=== PATIENT | female | born 1960 | race Hispanic/Latino ===

== ENCOUNTER 2017-03-13 21:50 | Emergency (ER) | payer MEDICAID, OTHER ==
[2017-03-13 22:03] VITALS: BP 125/96
[2017-03-13 22:18] LABS: Basophils % (Auto) 0.5 % (0.0-1.8); Eosinophils % (Auto) 2.1 % (0.0-4.3); Hematocrit 42.1 % (30.3-42.9); Hemoglobin 14.2 gm/dl (10.1-14.3); Mean Corpuscular HGB Conc 34 % (30-34); Mean Corpuscular Hemoglobin 32 pg (28-32); Mean Corpuscular Volume 94 fl (79-97); Platelet Count 279 K/mm3 (140-440); Red Cell Distribution Width 13.4 % (13.2-15.2); White Blood Count 16.6 K/mm3 (4.5-11.0)
[2017-03-13 22:41] LABS: Alanine Aminotransferase 16 units/L (7-56); Albumin 3.8 g/dL (3.9-5); Albumin/Globulin Ratio 1.2 %; Alkaline Phosphatase 92 units/L (35-129); Anion Gap 20 mmol/L; BUN/Creatinine Ratio 25; Blood Urea Nitrogen 15 mg/dL (7-17); Carbon Dioxide 23 mmol/L (22-30); Chloride 101.4 mmol/L (98-107); Glucose 145 mg/dL (65-100); Lipase 100 units/L (13-60); Potassium 4.1 mmol/L (3.6-5.0); Sodium 140 mmol/L (137-145); Total Protein 7.1 g/dL (6.3-8.2)
[2017-03-13 22:54] LABS: Bilirubin,Urine NEG (Negative); Blood,Urine NEG (Negative); Ketones,Urine NEG (Negative); Leukocyte Esterase,Urine TR (Negative); Mucus,Urine FEW /HPF; Nitrite,Urine NEG (Negative); Protein,Urine <15 mg/dL mg/dL (Negative)
== END 2017-03-13 23:55 | disposition left against medical advice (07) ==
LOC: ED 21:50
DX: R10.9 Unspecified abdominal pain (principal); Z53.21 Procedure and treatment not carried out due to patient leaving prior to being seen by health care provider
CPT/HCPCS: 36415; 80053; 81001; 83690; 85025

== ENCOUNTER 2017-03-14 08:31 | Inpatient (IN) | payer MEDICAID, OTHER ==
--- NOTE | 2017-03-14 09:34 | Emergency Department Report ---
Chief Complaint: Skin/Abscess/Foreign Body Stated Complaint: BOIL ON BUTTOCKS Time Seen by Provider: 03/14/17 09:32 - HPI History of Present Illness: Patient here for that she has abscess on her buttocks area with poor. She has a history of diabetes that her blood sugars at 232 in triage. Patient is drinking in coffee and her heart rate is at 117. Patient says she's been out of her medication especially her diabetic medication for 3 months. She says she does not have a primary care physician. She was here last night and she states she could not wait to be seen. She says she went home and slept. And now she is back. She says she is having pain to her right buttocks 10 out of 10. She is also complaining of pain to the right side of her abdomen that feels crampy and feels gassy. Last bowel movement was 3 days ago. Denies any urinary burning frequency or urgency. She reports some nausea but no vomiting. She denies any chest pain or shortness of breath. - ROS Review of Systems: All systems are negative unless stated in HPI above - Exam Vital Signs: Vital Signs 03/14/17 08:42 Temperature 97.7 F Pulse Rate 117 H Respiratory 20 Rate Blood Pressure 117/75 O2 Sat by Pulse 97 Oximetry Physical Exam: Gen.: This is a 56-year-old female that appears to be in discomfort which she states related to pain to her buttocks. She is nontoxic in appearance Abdomen: Tender to palpate the right abdomen area. Abdomen is soft. Bowel sounds are normal. Skin: Patient with erythema indurated area to right distal buttocks in her lateral. Tender to palpate. She has dressing to the area. CV: Patient is tachycardic 117. She is having pain 10 out of 10 MSE screening note: Focused history and physical exam performed. Due to findings the following was ordered: ED Medical Decision Making - Medical Decision Making MDM: Patient screened by provider in triage area. Appropriate protocol initiated and patient to be seen in main ED by ED Disposition for MSE Condition: Stable Referrals: PRIMARY CARE, [Primary Care Provider] - 3-5 Days
[2017-03-14 10:16] LABS: Basophils % (Auto) 0.7 % (0.0-1.8); Eosinophils % (Auto) 1.2 % (0.0-4.3); Hematocrit 43.4 % (30.3-42.9); Hemoglobin 14.3 gm/dl (10.1-14.3); Mean Corpuscular HGB Conc 33 % (30-34); Mean Corpuscular Hemoglobin 31 pg (28-32); Mean Corpuscular Volume 95 fl (79-97); Platelet Count 287 K/mm3 (140-440); Red Blood Count 4.58 M/mm3 (3.65-5.03); Red Cell Distribution Width 13.2 % (13.2-15.2); White Blood Count 16.8 K/mm3 (4.5-11.0)
[2017-03-14 10:24] LABS: Alanine Aminotransferase 16 units/L (7-56); Albumin 3.6 g/dL (3.9-5); Alkaline Phosphatase 96 units/L (35-129); Anion Gap 19 mmol/L; BUN/Creatinine Ratio 22; Blood Urea Nitrogen 13 mg/dL (7-17); Calcium 9.4 mg/dL (8.4-10.2); Carbon Dioxide 26 mmol/L (22-30); Chloride 98.6 mmol/L (98-107); Glucose 215 mg/dL (65-100); Potassium 4.3 mmol/L (3.6-5.0); Sodium 139 mmol/L (137-145); Total Protein 7.2 g/dL (6.3-8.2)
[2017-03-14 10:28] LABS: Bilirubin,Direct < 0.2 mg/dL (0-0.2)
[2017-03-14] MEDS ORDERED: CLEOCIN 600 MG/50 mL 600 MG/50 ML BAG IV ONE (12:16)
[2017-03-14] MEDS ORDERED: NACL 0.9% 1000 ML 2,000 ML IV ONE (12:16)
--- NOTE | 2017-03-14 12:17 | Emergency Department Report ---
ED General Adult HPI - General Chief complaint: Skin/Abscess/Foreign Body Stated complaint: BOIL ON BUTTOCKS Time Seen by Provider: 03/14/17 09:32 Source: patient, RN notes reviewed, old records reviewed Mode of arrival: Ambulatory Limitations: No Limitations - History of Present Illness Initial comments: This is a 56-year-old female who was previously unknown to this provider. She is a past medical history of COPD, hypertension, tobacco consumption, no primary care doctor, surgical history of total abdominal hysterectomy. The patient presents to the ER with multiple complaints. Her first complaint is abdominal pain. It is in the left lower quadrant and left upper quadrant. It has been present for a week. It is sharp in nature. It increases with palpation. It decreases with rest. No fever. Positive nausea, positive vomiting. No urinary symptoms, no constipation. The patient next complaints is right sided perirectal pain. It is sharp. It does not radiate anywhere. It increases with palpation and defecation. It decreases with rest. The patient's next complaint is headache. The headache is bitemporal and throbbing. It has been present for 3 days. It does not radiate anywhere. It is not sudden or thunderclap in nature. It did not reach maximal intensity within an hour. It is not the worst headache of her life. She reports a worse headache a few years ago. -: Gradual, days(s), week(s) Location: head, abdomen, pelvis Radiation: non-radiation Quality: aching Consistency: intermittent Improves with: rest Worsens with: movement Associated Symptoms: cough (chronic), headaches, loss of appetite, malaise, nausea/vomiting, shortness of breath (chronic). denies: confusion, chest pain - Related Data Home Medications Medication Instructions Recorded Confirmed Last Taken No Known Home Medications [No 03/14/17 03/14/17 Unknown Reported Home Medications] Allergies Allergy/AdvReac Type Severity Reaction Status Date / Time Penicillins Allergy Unknown Unknown Verified 03/13/17 21:59 ED Review of Systems ROS: Stated complaint: BOIL ON BUTTOCKS Other details as noted in HPI Constitutional: malaise, weakness Eyes: denies: vision change ENT: denies: epistaxis Respiratory: cough Cardiovascular: denies: chest pain Gastrointestinal: abdominal pain Genitourinary: denies: dysuria Musculoskeletal: arthralgia Skin: lesions Neurological: weakness ED Past Medical Hx - Past Medical History Previous Medical History?: Yes Hx Hypertension: Yes Hx Diabetes: Yes Hx Psychiatric Treatment: Yes Hx COPD: Yes Additional medical history: anxiety, fibromyalgia - Surgical History Past Surgical History?: Yes Additional Surgical History: hyst - Social History Smoking Status: Current Every Day Smoker Substance Use Type: Prescribed - Medications Home Medications: Home Medications Medication Instructions Recorded Confirmed Last Taken Type No Known Home Medications [No 03/14/17 03/14/17 Unknown History Reported Home Medications] ED Physical Exam - General Limitations: No Limitations General appearance: alert, in distress, obese - Head Head exam: Present: atraumatic, normocephalic - Eye Eye exam: Present: normal appearance, EOMI - ENT ENT exam: Present: normal exam, normal orophraynx, mucous membranes moist, normal external ear exam - Neck Neck exam: Present: normal inspection, full ROM - Respiratory Respiratory exam: Present: rhonchi. Absent: respiratory distress - Cardiovascular Cardiovascular Exam: Present: normal rhythm, tachycardia, normal heart sounds. Absent: systolic murmur, diastolic murmur, rubs, gallop - GI/Abdominal GI/Abdominal exam: Present: soft, tenderness, normal bowel sounds, other (left lower quadrant, left upper quadrant tender). Absent: distended, guarding, rebound, rigid, pulsatile mass - Rectal Rectal exam: Present: other (on the right inferior medial gluteal quadrant, there is a large abscess, 4 x 5 cm, fluctuant, indurated with erythema.). Absent: normal inspection (escorted by nurse Maria Luz Cooper) - Extremities Exam Extremities exam: Present: normal inspection, full ROM, normal capillary refill. Absent: pedal edema, joint swelling, calf tenderness - Back Exam Back exam: Present: normal inspection, full ROM. Absent: paraspinal tenderness , vertebral tenderness - Neurological Exam Neurological exam: Present: alert, oriented X3, other (Extraocular movements intact. Tongue midline. No facial droop. Facial sensation intact to light touch in the V1, V2, V3 distribution bilaterally. 5 and 5 strength in 4 extremities.. Sensation is intact to light touch in 4 extremities.) - Psychiatric Psychiatric exam: Present: anxious - Skin Skin exam: Present: warm, dry, intact, normal color. Absent: rash ED Course Vital Signs 03/14/17 03/14/17 03/14/17 08:42 10:56 11:00 Temperature 97.7 F 100.1 F H Pulse Rate 117 H 107 H Respiratory 20 22 Rate Blood Pressure 117/75 Blood Pressure 100/64 [Right] O2 Sat by Pulse 97 97 Oximetry 03/14/17 03/14/17 15:28 17:40 Temperature 98.7 F Pulse Rate 92 H Respiratory 15 Rate Blood Pressure Blood Pressure 103/67 [Right] O2 Sat by Pulse 95 Oximetry - Reevaluation(s) Reevaluation #1: 03/14/17 13:01 Differential diagnosis, including would not limited to: Colitis, diverticulitis , perforated viscus, gluteal abscess, perirectal abscess, perianal abscess Migraine headache, tension headache, cluster headache Assessment and plan: 56-year-old female with multiple complaints, including headache, abdominal pain, and rectal abscess. Has a GCS of 15, with an NIH score is 0, nonfocal neurologic examination with no neck pain or neck stiffness. Based on history and physical, headache unlikely to represent meningitis, ischemic or hemorrhagic stroke. She'll be treated with Reglan for her headache. In terms of her abdominal pain, a CT scan will be obtained. She will be given abdominal pain medication. In terms of her rectal abscess, it is sizable, and close to the anus. Given her history of COPD and hypertension, patient is an ASA 2 to a safe 3, and is a moderate risk for sedation. In addition, given her tachycardia and leukocytosis , patient meets systemic inflammatory response syndrome criteria, and I believe that she would be better off in the operating room having this incised and drained under controlled conditions. A CT scan is pending. Reevaluation #2: 03/14/17 14:21 CT scan interpretation is pending. Case is presented to the general surgeon on-call, Dr. Reyna, and the Hospital physician, Dr. Leon, who agreed to consult and admit the patient respectively, for sepsis secondary to anal abscess and cellulitis, probable left lower quadrant diverticulitis. Reevaluation #3: 03/14/17 14:36 CT scan demonstrates phlegmon in the right gluteal regions, no discrete abscess , and descending colitis/diverticulitis. Flagyl is added for extended coverage. ED Medical Decision Making - Lab Data Result diagrams: 03/14/17 09:53 03/14/17 09:50 Vital Signs 03/14/17 03/14/17 03/14/17 08:42 10:56 11:00 Temperature 97.7 F 100.1 F H Pulse Rate 117 H 107 H Respiratory 20 22 Rate Blood Pressure 117/75 Blood Pressure 100/64 [Right] O2 Sat by Pulse 97 97 Oximetry Lab Results 03/14/17 03/14/17 03/14/17 Range/Units 08:54 09:50 09:50 WBC (4.5-11.0) K/mm3 RBC (3.65-5.03) M/mm3 Hgb (10.1-14.3) gm/dl Hct (30.3-42.9) % MCV (79-97) fl MCH (28-32) pg MCHC (30-34) % RDW (13.2-15.2) % Plt Count (140-440) K/mm3 Lymph % (Auto) (13.4-35.0) % [place] % (Auto) (0.0-7.3) % Eos % (Auto) (0.0-4.3) % Baso % (Auto) (0.0-1.8) % Lymph # (1.2-5.4) K/mm3 [place] # (0.0-0.8) K/mm3 Eos # (0.0-0.4) K/mm3 Baso # (0.0-0.1) K/mm3 Seg Neutrophils % (40.0-70.0) % Seg Neutrophils # (1.8-7.7) K/mm3 Sodium 139 (137-145) mmol/L Potassium 4.3 (3.6-5.0) mmol/L Chloride 98.6 (98-107) mmol/L Carbon Dioxide 26 (22-30) mmol/L Anion Gap 19 mmol/L BUN 13 (7-17) mg/dL Creatinine 0.6 L (0.7-1.2) mg/dL Estimated GFR > 60 ml/min BUN/Creatinine Ratio 22 % Glucose 215 H (65-100) mg/dL POC Glucose 232 H (70-105) Lactic Acid (0.7-2.0) mmol/L Calcium 9.4 (8.4-10.2) mg/dL Total Bilirubin 0.30 (0.1-1.2) mg/dL Direct Bilirubin < 0.2 (0-0.2) mg/dL AST 15 (5-40) units/L ALT 16 (7-56) units/L Alkaline Phosphatase 96 (35-129) units/L Total Creatine Kinase (30-135) units/L Total Protein 7.2 (6.3-8.2) g/dL Albumin 3.6 L (3.9-5) g/dL Albumin/Globulin Ratio 1.0 % Lipase 25 (13-60) units/L 03/14/17 03/14/17 03/14/17 Range/Units 09:53 12:23 12:29 WBC 16.8 H (4.5-11.0) K/mm3 RBC 4.58 (3.65-5.03) M/mm3 Hgb 14.3 (10.1-14.3) gm/dl Hct 43.4 H (30.3-42.9) % MCV 95 (79-97) fl MCH 31 (28-32) pg MCHC 33 (30-34) % RDW 13.2 (13.2-15.2) % Plt Count 287 (140-440) K/mm3 Lymph % (Auto) 14.2 (13.4-35.0) % [place] % (Auto) 5.6 (0.0-7.3) % Eos % (Auto) 1.2 (0.0-4.3) % Baso % (Auto) 0.7 (0.0-1.8) % Lymph # 2.4 (1.2-5.4) K/mm3 [place] # 0.9 H (0.0-0.8) K/mm3 Eos # 0.2 (0.0-0.4) K/mm3 Baso # 0.1 (0.0-0.1) K/mm3 Seg Neutrophils % 78.3 H (40.0-70.0) % Seg Neutrophils # 13.1 H (1.8-7.7) K/mm3 Sodium (137-145) mmol/L Potassium (3.6-5.0) mmol/L Chloride (98-107) mmol/L Carbon Dioxide (22-30) mmol/L Anion Gap mmol/L BUN (7-17) mg/dL Creatinine (0.7-1.2) mg/dL Estimated GFR ml/min BUN/Creatinine Ratio % Glucose (65-100) mg/dL POC Glucose (70-105) Lactic Acid 1.20 (0.7-2.0) mmol/L Calcium (8.4-10.2) mg/dL Total Bilirubin (0.1-1.2) mg/dL Direct Bilirubin (0-0.2) mg/dL AST (5-40) units/L ALT (7-56) units/L Alkaline Phosphatase (35-129) units/L Total Creatine Kinase 60 (30-135) units/L Total Protein (6.3-8.2) g/dL Albumin (3.9-5) g/dL Albumin/Globulin Ratio % Lipase (13-60) units/L Critical care attestation.: If time is entered above; I have spent that time in minutes in the direct care of this critically ill patient, excluding procedure time. ED Disposition Clinical Impression: SIRS (systemic inflammatory response syndrome), Perirectal abscess Disposition: OP ADMIT IP TO THIS HOSP Is pt being admited?: Yes Condition: Good
--- NOTE | 2017-03-14 14:28 | Cat Scan Report ---
FINAL REPORT EXAM: CT ABDOMEN PELVIS W CON HISTORY: llq abd pain, rectal pain TECHNIQUE: CT of the abdomen and pelvis with IV contrast. Coronal and sagittal reconstructed imaging provided. PRIORS: None currently available. FINDINGS: ABDOMEN: Focal wall thickening and stranding of the adjacent mesentery series 3:122 involves the proximal sigmoid colon. Findings may represent a mild colitis or diverticulitis. Trace fluid in the colonic gutter but no perforation or abscess. Wibb-cv-ctjylnhy stool in the remainder of the colon without wall thickening or inflammatory changes. Terminal ilium is unremarkable. Appendix is not clearly identified. No pericecal inflammatory changes. Small bowel loops are unremarkable. No obstructive pattern. No free air. No free fluid. Fatty liver. No suspicious lesions or enhancement. Gallbladder, stomach, pancreas, spleen, and adrenals are unremarkable. Kidneys: Symmetrical cortical enhancement. No hydronephrosis. No suspicious enhancing lesions. IVC is unremarkable. Retro aortic left renal vein. Moderate aortic atherosclerotic disease. No aneurysm. No dissection. Aorta is patent. No periaortic or retroperitoneal mass or adenopathy. Mildly prominent left common iliac lymph node may be reactive. PELVIS: Series 3:183 demonstrates stranding around the right buttocks extending toward the right perineum where there is some soft tissue dense density is present. Findings may represent swelling or cellulitis. A distinct rim enhancing fluid collection or abscess is not evident. Mass is not excluded. The perirectal region appears relatively unremarkable. Bladder is unremarkable. There is no pelvic mass or adenopathy. Mildly prominent bilateral inguinal lymph nodes are nonspecific. The may be congenital or reactive. Uterus not clearly identified. Patient may be status post hysterectomy. Bones: No suspicious osseous lesions on this limited examination of the skeleton. Metastatic disease better evaluated with bone scan. Degenerative changes are in the spine. IMPRESSION: Suspect focal colitis or diverticulitis of the proximal sigmoid colon. No perforation or abscess. Mildly prominent left common iliac lymph node may be reactive. Findings of the right subcutaneous soft tissues extending to the peritoneum perineum may represent mild swelling or cellulitis. No distinct abscess or fluid collection is evident. Mass is not excluded. Fatty liver.
[2017-03-14] MEDS ORDERED: DULCOLAX PR PRN (14:35)
[2017-03-14] MEDS ORDERED: TYLENOL PO PRN (14:35)
[2017-03-14] MEDS ORDERED: MILK OF MAGNESIA PO PRN (14:35)
[2017-03-14] MEDS ORDERED: D50W (25GM) Syringe IV PRN (14:51)
[2017-03-14] MEDS ORDERED: FLAGYL 500 MG/100 ML 500 MG/100 ML BAG IV SCH (15:00)
--- NOTE | 2017-03-14 15:11 | Progress Note ---
Assessment and Plan Full consult dictated. 56 y/o COPD, + DM pt. active diverticulitis with sigmoid phlegmon perirectal abscess keep NPO IV antibiotics for I&D perirectal abscess in am pending anesthia eval and medical clearance Objective Vital Signs - 12hr 03/14/17 03/14/17 03/14/17 08:42 10:56 11:00 Temperature 97.7 F 100.1 F H Pulse Rate 117 H 107 H Respiratory 20 22 Rate Blood Pressure 117/75 Blood Pressure 100/64 [Right] O2 Sat by Pulse 97 97 Oximetry - Labs 03/14/17 09:53 03/14/17 09:50 Diabetes panel 03/14/17 Range/Units 09:50 Sodium 139 (137-145) mmol/L Potassium 4.3 (3.6-5.0) mmol/L Chloride 98.6 (98-107) mmol/L Carbon Dioxide 26 (22-30) mmol/L BUN 13 (7-17) mg/dL Creatinine 0.6 L (0.7-1.2) mg/dL Glucose 215 H (65-100) mg/dL Calcium 9.4 (8.4-10.2) mg/dL AST 15 (5-40) units/L ALT 16 (7-56) units/L Alkaline Phosphatase 96 (35-129) units/L Total Protein 7.2 (6.3-8.2) g/dL Albumin 3.6 L (3.9-5) g/dL Calcium panel 03/14/17 Range/Units 09:50 Calcium 9.4 (8.4-10.2) mg/dL Albumin 3.6 L (3.9-5) g/dL Pituitary panel 03/14/17 Range/Units 09:50 Sodium 139 (137-145) mmol/L Potassium 4.3 (3.6-5.0) mmol/L Chloride 98.6 (98-107) mmol/L Carbon Dioxide 26 (22-30) mmol/L BUN 13 (7-17) mg/dL Creatinine 0.6 L (0.7-1.2) mg/dL Glucose 215 H (65-100) mg/dL Calcium 9.4 (8.4-10.2) mg/dL Adrenal panel 03/14/17 Range/Units 09:50 Sodium 139 (137-145) mmol/L Potassium 4.3 (3.6-5.0) mmol/L Chloride 98.6 (98-107) mmol/L Carbon Dioxide 26 (22-30) mmol/L BUN 13 (7-17) mg/dL Creatinine 0.6 L (0.7-1.2) mg/dL Glucose 215 H (65-100) mg/dL Calcium 9.4 (8.4-10.2) mg/dL Total Bilirubin 0.30 (0.1-1.2) mg/dL AST 15 (5-40) units/L ALT 16 (7-56) units/L Alkaline Phosphatase 96 (35-129) units/L Total Protein 7.2 (6.3-8.2) g/dL Albumin 3.6 L (3.9-5) g/dL
[2017-03-14] MEDS ORDERED: AMBIEN PO PRN (15:24)
[2017-03-14] MEDS: DILAUDID IV PRN (15:29)
--- NOTE | 2017-03-14 15:43 | History and Physical Report ---
History of Present Illness Date of examination: 03/14/17 Date of admission: 03/14/2017 Chief complaint: Boil on buttocks and abdominal pain History of present illness: This is a 56-year-old female who was previously unknown to this provider. She is a past medical history of COPD, hypertension, tobacco consumption, no primary care doctor, surgical history of total abdominal hysterectomy. The patient presents to the ER with multiple complaints. Her first complaint is abdominal pain. It is in the left lower quadrant and left upper quadrant. It has been present for a week. It is sharp in nature. It increases with palpation. It decreases with rest. No fever. Positive nausea, positive vomiting. No urinary symptoms, no constipation. The patient next complaints is right sided perirectal pain. It is sharp. It does not radiate . It increases with palpation and defecation. It decreases with rest. The patient's next complaint is headache. The headache is bitemporal and throbbing. It has been present for 3 days. It does not radiate anywhere. It is not sudden or thunderclap in nature. It did not reach maximal intensity within an hour. It is not the worst headache of her life. She reports a worse headache a few years ago. Past History Past Medical History: COPD, hypertension Past Surgical History: hysterectomy Social history: smoking Medications and Allergies Allergies Allergy/AdvReac Type Severity Reaction Status Date / Time Penicillins Allergy Unknown Unknown Verified 03/13/17 21:59 Home Medications Medication Instructions Recorded Confirmed Last Taken Type No Known Home Medications [No 03/14/17 03/14/17 Unknown History Reported Home Medications] Active Meds: Active Medications Acetaminophen (Tylenol) 650 mg PO Q4H PRN PRN Reason: Pain MILD(1-3)/Fever >100.5/DIAZ Bisacodyl (Dulcolax) 10 mg LA QDAY PRN PRN Reason: Constipation unrelieved by MOM Dextrose (D50w (25gm) Syringe) 50 ml IV PRN PRN PRN Reason: Hypoglycemia Enoxaparin Sodium (Lovenox) 40 mg SUB-Q QDAY DANI Hydromorphone HCl (Dilaudid) 0.5 mg IV Q3H PRN PRN Reason: Pain, Moderate (4-6) Last Admin: 03/14/17 15:29 Dose: 0.5 mg Metronidazole (Flagyl 500 Mg/100 Ml) 500 mg in 100 mls @ 200 mls/hr IV ONCE DANI Sodium Chloride (Nacl 0.9% 1000 Ml) 1,000 mls @ 75 mls/hr IV DIRECT DANI Piperacillin Sod/Tazobactam Sod (Zosyn/Ns 3.375gm/50ml) 3.375 gm in 50 mls @ 100 mls/hr IV Q6HR DANI PRN Reason: Protocol Insulin Aspart (Novolog) 0 units SUB-Q AC DANI PRN Reason: Protocol Insulin Aspart (Novolog) 0 units SUB-Q QHS DANI PRN Reason: Protocol Magnesium Hydroxide (Milk Of Magnesia) 30 ml PO Q4H PRN PRN Reason: Constipation Ondansetron HCl (Zofran) 4 mg IV Q8H PRN PRN Reason: N/V unrelieved by Reglan Zolpidem Tartrate (Ambien) 5 mg PO QHS PRN PRN Reason: Sleep Review of Systems Constitutional: fatigue, poor appetite, no fever, no chills Ears, nose, mouth and throat: deferred Breasts: deferred Cardiovascular: high blood pressure, no chest pain, no orthopnea, no syncope Respiratory: cough, shortness of breath Gastrointestinal: abdominal pain, nausea Genitourinary Female: no pelvic pain, no dysuria, no urinary frequency Rectal: pain, other (from gluteal boil) Musculoskeletal: no neck stiffness, no shooting arm pain, no low back pain Integumentary: boils (R gluteal) Neurological: headaches, no paralysis, no weakness, no syncope Psychiatric: no memory loss, no insomnia, no change in appetite Endocrine: no heat intolerance, no excessive thirst, no excessive sweating Hematologic/Lymphatic: no easy bruising, no easy bleeding, no lymphadenopathy Allergic/Immunologic: no urticaria, no allergic rhinitis, no wheezing Exam - Constitutional Vitals: Temp Pulse Resp BP Pulse Ox 98.7 F 107 H 22 100/64 97 03/14/17 15:28 03/14/17 11:00 03/14/17 11:00 03/14/17 11:00 03/14/17 11:00 General appearance: Present: mild distress (from abdominal pain and R gluteal boil) - EENT Eyes: Present: PERRL ENT: hearing intact, clear oral mucosa - Neck Neck: Present: supple, normal ROM - Respiratory Respiratory effort: normal Respiratory: bilateral: CTA - Cardiovascular Heart Sounds: Present: S1 & S2. Absent: rub, click - Extremities Extremities: pulses symmetrical, No edema Peripheral Pulses: within normal limits - Abdominal General gastrointestinal: Present: tender Localized gastrointestinal: tender: LUQ, LLQ Female genitourinary: Present: deferred - Rectal Rectal Exam: deferred - Integumentary Integumentary: Present: clear, warm, dry (inferior medial gluteal quadrant, there is a large abscess, 4 x 5 cm, fluctuant, indurated with erythema.) - Musculoskeletal Musculoskeletal: strength equal bilaterally - Psychiatric Psychiatric: appropriate mood/affect, intact judgment & insight, cooperative - Neurologic Neurologic: moves all extremities - Allied Health Allied health notes reviewed: nursing Results - Labs CBC & Chem 7: 03/14/17 09:53 03/14/17 09:50 Labs: Laboratory Last Values WBC 16.8 K/mm3 (4.5-11.0) H 03/14/17 09:53 RBC 4.58 M/mm3 (3.65-5.03) 03/14/17 09:53 Hgb 14.3 gm/dl (10.1-14.3) 03/14/17 09:53 Hct 43.4 % (30.3-42.9) H 03/14/17 09:53 MCV 95 fl (79-97) 03/14/17 09:53 MCH 31 pg (28-32) 03/14/17 09:53 MCHC 33 % (30-34) 03/14/17 09:53 RDW 13.2 % (13.2-15.2) 03/14/17 09:53 Plt Count 287 K/mm3 (140-440) 03/14/17 09:53 Lymph % (Auto) 14.2 % (13.4-35.0) 03/14/17 09:53 [place] % (Auto) 5.6 % (0.0-7.3) 03/14/17 09:53 Eos % (Auto) 1.2 % (0.0-4.3) 03/14/17 09:53 Baso % (Auto) 0.7 % (0.0-1.8) 03/14/17 09:53 Lymph # 2.4 K/mm3 (1.2-5.4) 03/14/17 09:53 [place] # 0.9 K/mm3 (0.0-0.8) H 03/14/17 09:53 Eos # 0.2 K/mm3 (0.0-0.4) 03/14/17 09:53 Baso # 0.1 K/mm3 (0.0-0.1) 03/14/17 09:53 Seg Neutrophils % 78.3 % (40.0-70.0) H 03/14/17 09:53 Seg Neutrophils # 13.1 K/mm3 (1.8-7.7) H 03/14/17 09:53 Sodium 139 mmol/L (137-145) 03/14/17 09:50 Potassium 4.3 mmol/L (3.6-5.0) 03/14/17 09:50 Chloride 98.6 mmol/L (98-107) 03/14/17 09:50 Carbon Dioxide 26 mmol/L (22-30) 03/14/17 09:50 Anion Gap 19 mmol/L 03/14/17 09:50 BUN 13 mg/dL (7-17) 03/14/17 09:50 Creatinine 0.6 mg/dL (0.7-1.2) L 03/14/17 09:50 Estimated GFR > 60 ml/min 03/14/17 09:50 BUN/Creatinine Ratio 22 % 03/14/17 09:50 Glucose 215 mg/dL (65-100) H 03/14/17 09:50 POC Glucose 232 (70-105) H 03/14/17 08:54 Lactic Acid 0.80 mmol/L (0.7-2.0) 03/14/17 15:01 Calcium 9.4 mg/dL (8.4-10.2) 03/14/17 09:50 Total Bilirubin 0.30 mg/dL (0.1-1.2) 03/14/17 09:50 Direct Bilirubin < 0.2 mg/dL (0-0.2) 03/14/17 09:50 AST 15 units/L (5-40) 03/14/17 09:50 ALT 16 units/L (7-56) 03/14/17 09:50 Alkaline Phosphatase 96 units/L (35-129) 03/14/17 09:50 Total Creatine Kinase 60 units/L (30-135) 03/14/17 12:23 Total Protein 7.2 g/dL (6.3-8.2) 03/14/17 09:50 Albumin 3.6 g/dL (3.9-5) L 03/14/17 09:50 Albumin/Globulin Ratio 1.0 % 03/14/17 09:50 Lipase 25 units/L (13-60) 03/14/17 09:50 - Imaging and Cardiology CT scan - abdomen: report reviewed Assessment and Plan Advance Directives: Yes VTE prophylaxis?: Chemical Plan of care discussed with patient/family: Yes - Patient Problems (1) Sepsis Current Visit: Yes Status: Acute Qualifiers: Sepsis type: sepsis due to unspecified organism Qualified Code(s): A41.9 - Sepsis, unspecified organism (2) Headache Current Visit: Yes Status: Acute Qualifiers: Headache type: unspecified Headache chronicity pattern: acute headache (3) Abdominal pain Current Visit: Yes Status: Acute Qualifiers: Abdominal location: left upper quadrant Qualified Code(s): R10.12 - Left upper quadrant pain Plan to address problem: Consult GI, NPO (4) Perirectal abscess Current Visit: Yes Status: Acute Plan to address problem: Consult with General Surgery, Start patient on Zosyn
[2017-03-14 15:45] LABS: Bilirubin,Urine NEG (Negative); Blood,Urine NEG (Negative); Ketones,Urine TR mg/dL (Negative); Leukocyte Esterase,Urine TR (Negative); Mucus,Urine 1+ /HPF; Nitrite,Urine NEG (Negative); Protein,Urine <15 mg/dL mg/dL (Negative)
[2017-03-14] MEDS: LOVENOX SUB-Q SCH (15:51)
[2017-03-14] MEDS: NOVOLOG SUB-Q SCH (16:41)
[2017-03-14] MEDS: ZOSYN/NS 3.375GM/50ML 3.375 GM/50 ML BAG IV SCH (20:13)
[2017-03-14] MEDS: NACL 0.9% 1000 ML 1,000 ML IV SCH (23:22)
[2017-03-15] MEDS: NOVOLOG SUB-Q SCH ×5 (00:38→22:13)
[2017-03-15] MEDS: ZOSYN/NS 3.375GM/50ML 3.375 GM/50 ML BAG IV SCH ×2 (00:46→06:15)
--- NOTE | 2017-03-15 02:04 | Consultation ---
REASON FOR CONSULTATION: Perirectal abscess. HISTORY OF PRESENT ILLNESS: The patient is a 56-year-old female, who presents to the Emergency Room with recent onset of abdominal pain accompanied by nausea and vomiting. PAST MEDICAL HISTORY: Pertinent for COPD, diabetes and fibromyalgia. PAST SURGICAL HISTORY: Includes TAHBSO. ALLERGIES: PENICILLIN, WHICH " MEDICATIONS: She takes no medications. The patient states she is diabetic, " FAMILY HISTORY: Diabetes. SOCIAL HISTORY: Smokes half a pack a day for approximately 35 years. Denies any ethanol intake. While in the hospital, the patient had a CT scan of the abdomen performed, which is consistent with diverticulitis of the proximal sigmoid colon. No evidence of any perforation or abscess formation. Essentially, a diverticular phlegmon. Physical exam while in the ER by ER physician also revealed a perirectal abscess. Thus, the reason for my consultation. PHYSICAL EXAMINATION: GENERAL: At this time reveals the patient to be awake, alert, in mild discomfort, but no acute distress. VITAL SIGNS: Showed her to be running a low grade temp of 100.1, blood pressure is 100/64, pulse of 107, respirations 22. ABDOMEN: Reveals to be soft with minimal left lower quadrant tenderness at this time. There is a perirectal abscess noted on exam, which is fluctuant, erythematous and tender. LABORATORY DATA: Lab work at present includes a CBC, which shows a white count of 16.8, H and H is 14 and 43. Electrolytes are essentially within normal limits. Glucose is 215. LFTs are essentially normal. IMPRESSION: At this time is that of a 56-year-old diabetic female with: 1. History of chronic obstructive pulmonary disease and diabetes as well as fibromyalgia. 2. Active diverticulitis with diverticular phlegmon. 3. Perirectal abscess. PLAN: Proceed with I and D of perirectal abscess once medically cleared and stable. Also, will need anesthesia, preoperative evaluation. I will contact the OR, see when time is available. Also, the patient needs to be kept n.p.o., start on IV antibiotics as well as Sitz baths. I will follow with you. Thank you very much for consultation. JOB# [id number] LIBBY/LEONELA
[2017-03-15 05:33] LABS: Basophils % (Auto) 0.7 % (0.0-1.8); Hematocrit 39.1 % (30.3-42.9); Hemoglobin 13.3 gm/dl (10.1-14.3); Mean Corpuscular HGB Conc 34 % (30-34); Mean Corpuscular Hemoglobin 32 pg (28-32); Mean Corpuscular Volume 93 fl (79-97); Platelet Count 248 K/mm3 (140-440); Red Blood Count 4.21 M/mm3 (3.65-5.03); Red Cell Distribution Width 13.2 % (13.2-15.2); White Blood Count 12.5 K/mm3 (4.5-11.0)
[2017-03-15 06:00] LABS: Alanine Aminotransferase 12 units/L (7-56); Albumin 3.4 g/dL (3.9-5); Albumin/Globulin Ratio 1.1 %; Alkaline Phosphatase 80 units/L (35-129); Anion Gap 15 mmol/L; BUN/Creatinine Ratio 18; Blood Urea Nitrogen 9 mg/dL (7-17); Calcium 9.1 mg/dL (8.4-10.2); Carbon Dioxide 25 mmol/L (22-30); Chloride 103.1 mmol/L (98-107); Glucose 109 mg/dL (65-100); Potassium 3.9 mmol/L (3.6-5.0); Sodium 139 mmol/L (137-145); Total Protein 6.4 g/dL (6.3-8.2)
[2017-03-15] MEDS: DILAUDID IV PRN ×6 (08:36→23:34)
[2017-03-15] MEDS ORDERED: DILAUDID ONE (09:18)
[2017-03-15] MEDS ORDERED: DIPRIVAN 10 MG/ML IV ONE (09:18)
[2017-03-15] MEDS ORDERED: XYLOCAINE MPF 2% ONE (09:19)
[2017-03-15] MEDS ORDERED: QUELICIN ONE (09:20)
[2017-03-15] MEDS ORDERED: HYDROGEN PEROXIDE ONE (09:30)
[2017-03-15] MEDS ORDERED: METHYLENE BLUE ONE (09:31)
[2017-03-15] MEDS ORDERED: MARCAINE 0.5% 30 ML INFILTRATI ONE (09:31)
--- NOTE | 2017-03-15 10:21 | Anesthesia Consultation ---
Anesthesia Consult and Med Hx Date of service: 03/15/17 - Airway Anesthetic Teeth Evaluation: Edentulous ROM Head & Neck: Adequate Mental/Hyoid Distance: Adequate Mallampati Class: Class II Intubation Access Assessment: Probably Good - Pre-Operative Health Status ASA Pre-Surgery Classification: ASA3 Proposed Anesthetic Plan: General - Pulmonary Hx Smoking: Yes (1/4 pack/day, smokes for 40 years) COPD: Yes - Cardiovascular System Hx Hypertension: Yes (has not taken prescribed meds recently) - Central Nervous System Hx Psychiatric Problems: Yes (anxiety/depression) - Endocrine Hx Non-Insulin Dependent Diabetes: Yes (has not taken prescribed meds recently) - Other Systems Hx Alcohol Use: No Hx Substance Use: Yes (prescribed meds)
--- NOTE | 2017-03-15 10:23 | Anesthesia Day of Surgery ---
Anesthesia Day of Surgery - Day of Surgery Patient Examined: Yes Patient H&P Reviewed: Yes Patient is NPO: Yes
[2017-03-15] MEDS: NACL 0.9% 1000 ML 1,000 ML IV SCH (10:41)
[2017-03-15] MEDS ORDERED: PEPCID IV NR (11:00)
[2017-03-15] MEDS ORDERED: VERSED IV NR (11:00)
[2017-03-15] MEDS ORDERED: MARCAINE 0.5% INFILTRATI ONE ×2 (11:10)
[2017-03-15] MEDS ORDERED: HYDROGEN PEROXIDE IRRIGATION ONE (11:12)
[2017-03-15] MEDS: LOVENOX SUB-Q SCH (11:15)
[2017-03-15] MEDS ORDERED: ZOFRAN ONE (11:19)
--- NOTE | 2017-03-15 11:58 | Operative Report ---
PREOPERATIVE DIAGNOSIS: Right perirectal abscess. POSTOPERATIVE DIAGNOSIS: Right perirectal abscess. PROCEDURE: I and D and packing of right perirectal abscess. SURGEON: Pelon Reyna MD. ANESTHESIA: General. ESTIMATED BLOOD LOSS: Minimal. DRAINS: No drains. DESCRIPTION OF PROCEDURE: The patient was taken to the operating room and placed in a jackknife position, prepped and draped in sterile fashion. The fluctuant, erythematous abscess was noted in the right perirectal area. An 11 blade was used to incise skin and subcutaneous tissue. A fair amount of bloody purulence was drained. Aerobic and anaerobic cultures were taken. A digital dissection was then carried out to break up all the micro loculations. Hemostasis obtained with needle tip electrocautery. The abscess cavity was then copiously irrigated with a 50% Betadine peroxide solution. I then irrigated with saline. The abscess cavity was packed with 1 inch iodoform gauze. A 0.5% Marcaine was infiltrated for postoperative pain relief. Fluffs and pressure dressings applied. The patient tolerated the procedure well and left OR in stable condition. JOB# [id number] LIBBY/LEONELA
[2017-03-15] MEDS ORDERED: D5LR 1,000 ML IV ONE (12:10)
[2017-03-15] MEDS: D5LR 1,000 ML IV SCH (12:10)
[2017-03-15] MEDS: LEVAQUIN 500MG/100ML 500 MG/100 ML BAG IV SCH (13:31)
[2017-03-15] MEDS: ZOFRAN IV PRN (14:35)
[2017-03-15] MEDS: FLAGYL 500 MG/100 ML 500 MG/100 ML BAG IV SCH ×2 (17:55→23:39)
--- NOTE | 2017-03-15 23:17 | Progress Note ---
Assessment and Plan - Patient Problems (1) Sepsis Current Visit: Yes Status: Acute Qualifiers: Sepsis type: sepsis due to unspecified organism Qualified Code(s): A41.9 - Sepsis, unspecified organism Plan to address problem: Sec to diverticulitis and Perirectal abscess.Conr Zosyn and vancomycin (2) Perirectal abscess Current Visit: Yes Status: Acute Plan to address problem: Rt Gluteal/Perirectal abscess---For I and D tomorrow Medically cleared for surgery (3) Sigmoid diverticulitis Current Visit: Yes Status: Acute Plan to address problem: Cont Zosyn (4) DVT prophylaxis Current Visit: Yes Status: Acute Plan to address problem: On Lovenox Subjective Date of service: 03/15/17 Principal diagnosis: Sigmoid diverticulitis and perirectal abscess Interval history: Symptomatically better.No fever Objective - Constitutional Vitals: Vital Signs - 12hr 03/15/17 03/15/17 03/15/17 11:32 11:35 11:40 Temperature 97.7 F Pulse Rate 99 H 87 89 Respiratory 16 14 12 Rate Blood Pressure 109/55 121/58 104/48 O2 Sat by Pulse 99 97 96 Oximetry 03/15/17 03/15/17 03/15/17 11:45 11:58 12:00 Temperature Pulse Rate 90 85 Respiratory 18 12 15 Rate Blood Pressure 106/54 113/66 O2 Sat by Pulse 96 95 Oximetry 03/15/17 03/15/17 03/15/17 12:15 12:28 12:30 Temperature Pulse Rate 81 80 Respiratory 13 14 12 Rate Blood Pressure 109/79 114/72 O2 Sat by Pulse 95 93 Oximetry 03/15/17 03/15/17 03/15/17 12:45 15:41 19:54 Temperature 98.3 F Pulse Rate 83 90 Respiratory 18 20 20 Rate Blood Pressure 116/79 96/46 O2 Sat by Pulse 94 100 Oximetry 03/15/17 23:04 Temperature 98.0 F Pulse Rate 89 Respiratory 20 Rate Blood Pressure 140/90 O2 Sat by Pulse 95 Oximetry General appearance: Present: no acute distress, well-nourished - EENT Eyes: PERRL, EOM intact ENT: hearing intact, clear oral mucosa Ears: bilateral: normal - Neck Neck: supple, normal ROM - Respiratory Respiratory effort: normal Respiratory: bilateral: CTA - Breasts Breasts: normal - Cardiovascular Heart rate: 76 Rhythm: regular Heart Sounds: Present: S1 & S2. Absent: gallop, rub Extremities: pulses intact, No edema, normal color, Full ROM - Gastrointestinal General gastrointestinal: Present: soft, non-tender, non-distended, normal bowel sounds Rectal Exam: deferred - Genitourinary Female genitourinary: normal - Integumentary Integumentary: clear, warm, dry - Musculoskeletal Musculoskeletal: 1, strength equal bilaterally - Neurologic Neurologic: CNII-XII intact, moves all extremities - Psychiatric Psychiatric: memory intact, appropriate mood/affect, intact judgment & insight - Labs CBC & Chem 7: 03/15/17 05:09 03/15/17 05:12 Labs: Abnormal lab results 03/15/17 03/15/17 03/15/17 Range/Units 05:09 05:12 12:06 WBC 12.5 H (4.5-11.0) K/mm3 [place] # 0.9 H (0.0-0.8) K/mm3 Seg Neutrophils # 8.6 H (1.8-7.7) K/mm3 Creatinine 0.5 L (0.7-1.2) mg/dL Glucose 109 H (65-100) mg/dL POC Glucose 68 L (70-105) Albumin 3.4 L (3.9-5) g/dL 03/15/17 03/15/17 03/15/17 Range/Units 12:42 15:48 21:21 WBC (4.5-11.0) K/mm3 [place] # (0.0-0.8) K/mm3 Seg Neutrophils # (1.8-7.7) K/mm3 Creatinine (0.7-1.2) mg/dL Glucose (65-100) mg/dL POC Glucose 106 H 145 H 128 H (70-105) Albumin (3.9-5) g/dL
[2017-03-16] MEDS: DILAUDID IV PRN ×5 (04:36→22:47)
[2017-03-16] MEDS: FLAGYL 500 MG/100 ML 500 MG/100 ML BAG IV SCH ×3 (06:15→23:44)
[2017-03-16] MEDS: NOVOLOG SUB-Q SCH ×4 (09:06→23:44)
[2017-03-16] MEDS: LEVAQUIN 500MG/100ML 500 MG/100 ML BAG IV SCH (09:58)
--- NOTE | 2017-03-16 14:38 | Progress Note ---
Assessment and Plan POD # 1 Pt feeling "much better". hungry. Abd soft. - LLQ tenderness at this time. dressings dry. surgically stable d/c perirectal wd packing in am and begin sitz bath. may attempt ADA cl liq diet from diverticulitis perspective Objective Vital Signs - 12hr 03/16/17 03/16/17 04:36 07:33 Temperature 98.6 F Pulse Rate 91 H Respiratory 20 16 Rate Blood Pressure 130/67 O2 Sat by Pulse 99 Oximetry - Labs 03/15/17 05:09 03/15/17 05:12
--- NOTE | 2017-03-16 15:35 | Progress Note ---
Assessment and Plan - Patient Problems (1) Sepsis Current Visit: Yes Status: Acute Qualifiers: Sepsis type: sepsis due to unspecified organism Qualified Code(s): A41.9 - Sepsis, unspecified organism Plan to address problem: Sec to diverticulitis and Perirectal abscess.Conr Zosyn and vancomycin (2) Perirectal abscess Current Visit: Yes Status: Acute Plan to address problem: Rt Gluteal/Perirectal abscess---For I and D tomorrow Medically cleared for surgery (3) Sigmoid diverticulitis Current Visit: Yes Status: Acute Plan to address problem: Cont Zosyn Improving (4) DVT prophylaxis Current Visit: Yes Status: Acute Plan to address problem: On Lovenox Subjective Date of service: 03/16/17 Principal diagnosis: Sigmoid diverticulitis and perirectal abscess Interval history: Symptomatically better.No fever S/p I and of Perirectal abscess today Objective - Constitutional Vitals: Vital Signs - 12hr 03/16/17 03/16/17 04:36 07:33 Temperature 98.6 F Pulse Rate 91 H Respiratory 20 16 Rate Blood Pressure 130/67 O2 Sat by Pulse 99 Oximetry General appearance: Present: no acute distress, well-nourished - EENT Eyes: PERRL, EOM intact ENT: hearing intact, clear oral mucosa Ears: bilateral: normal - Neck Neck: supple, normal ROM - Respiratory Respiratory effort: normal Respiratory: bilateral: CTA - Breasts Breasts: normal - Cardiovascular Rhythm: regular Heart Sounds: Present: S1 & S2. Absent: gallop, rub Extremities: pulses intact, No edema, normal color, Full ROM - Gastrointestinal General gastrointestinal: Present: soft, tender, non-distended, normal bowel sounds - Genitourinary Female genitourinary: normal - Integumentary Integumentary: clear, warm, dry - Musculoskeletal Musculoskeletal: 1, strength equal bilaterally - Neurologic Neurologic: moves all extremities - Psychiatric Psychiatric: memory intact, appropriate mood/affect, intact judgment & insight - Labs CBC & Chem 7: 03/15/17 05:09 03/15/17 05:12 Labs: Abnormal lab results 03/15/17 03/15/17 Range/Units 15:48 21:21 POC Glucose 145 H 128 H (70-105)
[2017-03-16] MEDS: HABITROL TD SCH (17:30)
[2017-03-16] MEDS: D5LR 1,000 ML IV SCH (19:38)
[2017-03-17] MEDS: FLAGYL 500 MG/100 ML 500 MG/100 ML BAG IV SCH ×3 (05:34→21:25)
[2017-03-17] MEDS: ZOFRAN IV PRN (05:46)
[2017-03-17] MEDS: DILAUDID IV PRN ×4 (05:46→21:47)
[2017-03-17] MEDS: NOVOLOG SUB-Q SCH ×4 (07:30→21:49)
--- NOTE | 2017-03-17 09:53 | Progress Note ---
Assessment and Plan Assessment and plan: Sepsis due to right jazmin-rectal abscess. Continue Levaquin and Flagyl iv. Blood cultures drawn, negative so far. Right jazmin-rectal abscess. Continue Levaquin and Flagyl iv. s/p I and D by Dr. Reyna 2 days ago on 03/15/17. Sigmoid diverticulitis. On Antibiotics iv. DVT prophylaxis with Heparin subcut Full code status History Interval history: Feels better, Asking for more food Less abdominal pain Hospitalist Physical - Physical exam Narrative exam: GEN APPEARANCE : Not in acute distress,morbidly obese,anxious HEENT: Normocephalic Atraumatic NECK : supple, no JVD LUNGS: clear to auscultation bilaterally, no rales, no wheeze HEART: S1 and S2 regular, tachycardia, no murmurs, rubs or gallop, ABD: Soft, no tenderness, no distension, normal bowel sounds EXT: No edema, no clubbing, no cyanosis NEURO: Awake,alert,oriented x 3, no facial asymmetry, - Constitutional Vitals: Temp Pulse Resp BP Pulse Ox 98.2 F 83 20 126/72 97 03/16/17 23:35 03/16/17 23:35 03/17/17 05:47 03/16/17 23:35 03/16/17 23:35 General appearance: Present: no acute distress, well-nourished Results - Labs CBC & Chem 7: 03/15/17 05:09 03/15/17 05:12 Labs: Laboratory Last Values WBC 12.5 K/mm3 (4.5-11.0) H 03/15/17 05:09 RBC 4.21 M/mm3 (3.65-5.03) 03/15/17 05:09 Hgb 13.3 gm/dl (10.1-14.3) 03/15/17 05:09 Hct 39.1 % (30.3-42.9) 03/15/17 05:09 MCV 93 fl (79-97) 03/15/17 05:09 MCH 32 pg (28-32) 03/15/17 05:09 MCHC 34 % (30-34) 03/15/17 05:09 RDW 13.2 % (13.2-15.2) 03/15/17 05:09 Plt Count 248 K/mm3 (140-440) 03/15/17 05:09 Lymph % (Auto) 20.0 % (13.4-35.0) 03/15/17 05:09 [place] % (Auto) 7.2 % (0.0-7.3) 03/15/17 05:09 Eos % (Auto) 3.0 % (0.0-4.3) 03/15/17 05:09 Baso % (Auto) 0.7 % (0.0-1.8) 03/15/17 05:09 Lymph # 2.5 K/mm3 (1.2-5.4) 03/15/17 05:09 [place] # 0.9 K/mm3 (0.0-0.8) H 03/15/17 05:09 Eos # 0.4 K/mm3 (0.0-0.4) 03/15/17 05:09 Baso # 0.1 K/mm3 (0.0-0.1) 03/15/17 05:09 Seg Neutrophils % 69.1 % (40.0-70.0) 03/15/17 05:09 Seg Neutrophils # 8.6 K/mm3 (1.8-7.7) H 03/15/17 05:09 Sodium 139 mmol/L (137-145) 03/15/17 05:12 Potassium 3.9 mmol/L (3.6-5.0) 03/15/17 05:12 Chloride 103.1 mmol/L (98-107) 03/15/17 05:12 Carbon Dioxide 25 mmol/L (22-30) 03/15/17 05:12 Anion Gap 15 mmol/L 03/15/17 05:12 BUN 9 mg/dL (7-17) 03/15/17 05:12 Creatinine 0.5 mg/dL (0.7-1.2) L 03/15/17 05:12 Estimated GFR > 60 ml/min 03/15/17 05:12 BUN/Creatinine Ratio 18 % 03/15/17 05:12 Glucose 109 mg/dL (65-100) H 03/15/17 05:12 POC Glucose 84 (70-105) 03/17/17 06:43 Hemoglobin A1c 5.8 % (4-6) 03/15/17 05:09 Lactic Acid 0.80 mmol/L (0.7-2.0) 03/14/17 15:01 Calcium 9.1 mg/dL (8.4-10.2) 03/15/17 05:12 Total Bilirubin 0.60 mg/dL (0.1-1.2) 03/15/17 05:12 Direct Bilirubin < 0.2 mg/dL (0-0.2) 03/14/17 09:50 AST 11 units/L (5-40) 03/15/17 05:12 ALT 12 units/L (7-56) 03/15/17 05:12 Alkaline Phosphatase 80 units/L (35-129) 03/15/17 05:12 Total Creatine Kinase 60 units/L (30-135) 03/14/17 12:23 Total Protein 6.4 g/dL (6.3-8.2) 03/15/17 05:12 Albumin 3.4 g/dL (3.9-5) L 03/15/17 05:12 Albumin/Globulin Ratio 1.1 % 03/15/17 05:12 Lipase 25 units/L (13-60) 03/14/17 09:50 Urine Color Yellow (Yellow) 03/14/17 14:49 Urine Turbidity Clear (Clear) 03/14/17 14:49 Urine pH 5.0 (5.0-7.0) 03/14/17 14:49 Ur Specific [place] 1.021 (1.003-1.030) 03/14/17 14:49 Urine Protein <15 mg/dl mg/dL (Negative) 03/14/17 14:49 Urine Glucose (UA) Neg mg/dL (Negative) 03/14/17 14:49 Urine Ketones Tr mg/dL (Negative) 03/14/17 14:49 Urine Blood Neg (Negative) 03/14/17 14:49 Urine Nitrite Neg (Negative) 03/14/17 14:49 Urine Bilirubin Neg (Negative) 03/14/17 14:49 Urine Urobilinogen 2.0 mg/dL (<2.0) 03/14/17 14:49 Ur Leukocyte Esterase Tr (Negative) 03/14/17 14:49 Urine WBC (Auto) 7.0 /HPF (0.0-6.0) H 03/14/17 14:49 Urine RBC (Auto) 6.0 /HPF (0.0-6.0) 03/14/17 14:49 U Epithel Cells (Auto) 14.0 /HPF (0-13.0) H 03/14/17 14:49 Hyaline Casts 1 /LPF 03/14/17 14:49 Urine Mucus 1+ /HPF 03/14/17 14:49
[2017-03-17] MEDS: HABITROL TD SCH (11:29)
[2017-03-17] MEDS: LEVAQUIN 500MG/100ML 500 MG/100 ML BAG IV SCH (11:30)
--- NOTE | 2017-03-17 11:47 | Progress Note ---
Assessment and Plan POD # 2 Pt feeling well without compl. latosha cl liq Abd soft surgically stable start sitz bath and remove packing today advance diet as ltaosha will follow prn rto next wk Objective Vital Signs - 12hr 03/17/17 03/17/17 03/17/17 00:58 05:46 05:47 Respiratory 20 20 Rate Respiratory 20 Rate [Right Perineum] - Labs 03/15/17 05:09 03/15/17 05:12
[2017-03-17] MEDS: D5LR 1,000 ML IV SCH (20:18)
[2017-03-18] MEDS: D5LR 1,000 ML IV SCH (01:36)
[2017-03-18 05:25] LABS: Hematocrit 36.9 % (30.3-42.9); Hemoglobin 12.8 gm/dl (10.1-14.3); Mean Corpuscular HGB Conc 35 % (30-34); Mean Corpuscular Hemoglobin 32 pg (28-32); Mean Corpuscular Volume 92 fl (79-97); Platelet Count 249 K/mm3 (140-440); Red Blood Count 3.99 M/mm3 (3.65-5.03); Red Cell Distribution Width 12.9 % (13.2-15.2); White Blood Count 8.9 K/mm3 (4.5-11.0)
[2017-03-18] MEDS: FLAGYL 500 MG/100 ML 500 MG/100 ML BAG IV SCH ×2 (05:28→14:34)
[2017-03-18] MEDS: NOVOLOG SUB-Q SCH ×3 (08:08→18:07)
--- NOTE | 2017-03-18 09:20 | Progress Note ---
Hospitalist Physical - Constitutional Vitals: Temp Pulse Resp BP Pulse Ox 98.7 F 86 20 120/76 93 03/18/17 07:36 03/18/17 07:36 03/18/17 07:36 03/18/17 07:36 03/18/17 07:36 General appearance: Present: no acute distress, well-nourished Results - Labs CBC & Chem 7: 03/18/17 05:00 03/15/17 05:12 Labs: Laboratory Last Values WBC 8.9 K/mm3 (4.5-11.0) 03/18/17 05:00 RBC 3.99 M/mm3 (3.65-5.03) 03/18/17 05:00 Hgb 12.8 gm/dl (10.1-14.3) 03/18/17 05:00 Hct 36.9 % (30.3-42.9) 03/18/17 05:00 MCV 92 fl (79-97) 03/18/17 05:00 MCH 32 pg (28-32) 03/18/17 05:00 MCHC 35 % (30-34) H 03/18/17 05:00 RDW 12.9 % (13.2-15.2) L 03/18/17 05:00 Plt Count 249 K/mm3 (140-440) 03/18/17 05:00 Lymph % (Auto) 20.0 % (13.4-35.0) 03/15/17 05:09 [place] % (Auto) 7.2 % (0.0-7.3) 03/15/17 05:09 Eos % (Auto) 3.0 % (0.0-4.3) 03/15/17 05:09 Baso % (Auto) 0.7 % (0.0-1.8) 03/15/17 05:09 Lymph # 2.5 K/mm3 (1.2-5.4) 03/15/17 05:09 [place] # 0.9 K/mm3 (0.0-0.8) H 03/15/17 05:09 Eos # 0.4 K/mm3 (0.0-0.4) 03/15/17 05:09 Baso # 0.1 K/mm3 (0.0-0.1) 03/15/17 05:09 Seg Neutrophils % 69.1 % (40.0-70.0) 03/15/17 05:09 Seg Neutrophils # 8.6 K/mm3 (1.8-7.7) H 03/15/17 05:09 Sodium 139 mmol/L (137-145) 03/15/17 05:12 Potassium 3.9 mmol/L (3.6-5.0) 03/15/17 05:12 Chloride 103.1 mmol/L (98-107) 03/15/17 05:12 Carbon Dioxide 25 mmol/L (22-30) 03/15/17 05:12 Anion Gap 15 mmol/L 03/15/17 05:12 BUN 9 mg/dL (7-17) 03/15/17 05:12 Creatinine 0.5 mg/dL (0.7-1.2) L 03/15/17 05:12 Estimated GFR > 60 ml/min 03/15/17 05:12 BUN/Creatinine Ratio 18 % 03/15/17 05:12 Glucose 109 mg/dL (65-100) H 03/15/17 05:12 POC Glucose 102 (70-105) 03/18/17 06:28 Hemoglobin A1c 5.8 % (4-6) 03/15/17 05:09 Lactic Acid 0.80 mmol/L (0.7-2.0) 03/14/17 15:01 Calcium 9.1 mg/dL (8.4-10.2) 03/15/17 05:12 Total Bilirubin 0.60 mg/dL (0.1-1.2) 03/15/17 05:12 Direct Bilirubin < 0.2 mg/dL (0-0.2) 03/14/17 09:50 AST 11 units/L (5-40) 03/15/17 05:12 ALT 12 units/L (7-56) 03/15/17 05:12 Alkaline Phosphatase 80 units/L (35-129) 03/15/17 05:12 Total Creatine Kinase 60 units/L (30-135) 03/14/17 12:23 Total Protein 6.4 g/dL (6.3-8.2) 03/15/17 05:12 Albumin 3.4 g/dL (3.9-5) L 03/15/17 05:12 Albumin/Globulin Ratio 1.1 % 03/15/17 05:12 Lipase 25 units/L (13-60) 03/14/17 09:50 Urine Color Yellow (Yellow) 03/14/17 14:49 Urine Turbidity Clear (Clear) 03/14/17 14:49 Urine pH 5.0 (5.0-7.0) 03/14/17 14:49 Ur Specific [place] 1.021 (1.003-1.030) 03/14/17 14:49 Urine Protein <15 mg/dl mg/dL (Negative) 03/14/17 14:49 Urine Glucose (UA) Neg mg/dL (Negative) 03/14/17 14:49 Urine Ketones Tr mg/dL (Negative) 03/14/17 14:49 Urine Blood Neg (Negative) 03/14/17 14:49 Urine Nitrite Neg (Negative) 03/14/17 14:49 Urine Bilirubin Neg (Negative) 03/14/17 14:49 Urine Urobilinogen 2.0 mg/dL (<2.0) 03/14/17 14:49 Ur Leukocyte Esterase Tr (Negative) 03/14/17 14:49 Urine WBC (Auto) 7.0 /HPF (0.0-6.0) H 03/14/17 14:49 Urine RBC (Auto) 6.0 /HPF (0.0-6.0) 03/14/17 14:49 U Epithel Cells (Auto) 14.0 /HPF (0-13.0) H 03/14/17 14:49 Hyaline Casts 1 /LPF 03/14/17 14:49 Urine Mucus 1+ /HPF 03/14/17 14:49
[2017-03-18] MEDS: LEVAQUIN 500MG/100ML 500 MG/100 ML BAG IV SCH (09:30)
[2017-03-18] MEDS: ZOFRAN IV PRN (09:46)
[2017-03-18] MEDS: DILAUDID IV PRN ×2 (09:48→14:33)
[2017-03-18] MEDS: HABITROL TD SCH (11:02)
--- NOTE | 2017-03-18 15:05 | Discharge Summary ---
Providers - Providers Date of Admission: 03/14/17 14:36 Date of discharge: 03/18/17 Attending physician: AMADO BURGER 03/14/17 12:15 Consult to Physician [CONS] Urgent Consulting Provider: JOAQUINA REYNA Reason For Exam: rectal abscess Notified:: awaiting call back 03/14/17 15:04 Consult to Physician [CONS] Routine Consulting Provider: TONE SCHAFFER Reason For Exam: anesth pre-op eval Place consult to:: dr. schaffer Notified:: office Phone number called:: Was contact made?: No Time called:: 08:09 Comment:: left msg 03/16/17 11:32 Consult to Wound/ET Nurse [CONS] Routine Reason For Exam: wound eval Primary care physician: RN CARDIAC CATH Hospitalization Condition: Fair Disposition: DC-01 TO HOME OR SELFCARE Exam - Constitutional Vitals: Temp Pulse Resp BP Pulse Ox 98.7 F 86 20 120/76 93 03/18/17 07:36 03/18/17 07:36 03/18/17 07:36 03/18/17 07:36 03/18/17 07:36 Plan Activity: no restrictions Diet: low fat, low cholesterol, low salt Additional Instructions: 1. Follow up with [facility] in 1 week. 2.Follow up with Dr. Reyna in 1 week. 3.Follow up with [facility] Elias in 1 week Follow up with: PRIMARY CARE, [Primary Care Provider] - 3-5 Days Prescriptions: Ciprofloxacin HCl [Ciprofloxacin TAB] 500 mg PO BID 6 Days tablet HYDROcodone/ACETAMINOPHEN [[place] 5-325 Tablet] 1 each PO Q6H #12 tablet metroNIDAZOLE [Flagyl] 500 mg PO Q8HR #20 tablet Promethazine [Phenergan TAB] 25 mg PO Q6HR PRN #20 tab PRN Reason: Nausea
[2017-03-18 16:20] VITALS: BP 103/65
[2017-03-18] MEDS ORDERED: Fluarix Quad 2017-2018(36 MOS+ IM ONE (18:00)
[2017-03-18] MEDS ORDERED: PNEUMOVAX 23 IM ONE (18:00)
== END 2017-03-18 18:15 | disposition home or self-care (01) | DRG 854 ==
LOC: ED 08:31 → 3A 14:36
PROVIDERS: ADMIT Internal Medicine; ATTEND Internal Medicine
PROC: 0J990ZZ Drainage of Buttock Subcutaneous Tissue and Fascia, Open Approach (ICD-10-PCS; principal; 2017-03-15)
PROC: 3E0234Z Introduction of Serum, Toxoid and Vaccine into Muscle, Percutaneous Approach (ICD-10-PCS; 2017-03-18)
DX: A41.9 Sepsis, unspecified organism (principal); K61.1 Rectal abscess; K57.32 Diverticulitis of large intestine without perforation or abscess without bleeding; Z23 Encounter for immunization; Z88.0 Allergy status to penicillin; E11.9 Type 2 diabetes mellitus without complications; I10 Essential (primary) hypertension; J44.9 Chronic obstructive pulmonary disease, unspecified; Z90.710 Acquired absence of both cervix and uterus; M79.7 Fibromyalgia; F17.200 Nicotine dependence, unspecified, uncomplicated; E66.9 Obesity, unspecified; Z68.31 Body mass index [BMI] 31.0-31.9, adult
CPT/HCPCS: 36415; 74177; 80048; 80053; 80074; 81001; 82140; 82550; 82962; 83036; 83690; 85025; 85027; 87040; 87075; 87116; 90686; 90732; 93005; 93010; 96365; 96375; J0330; J1170; J1650; J1956; J2250; J2405; J2543; J2704; J7030; J7121; Q9967; Q9968